=== PATIENT | female | born 1990 | race Caucasian/White ===

== ENCOUNTER 2018-03-01 10:16 | Emergency (ER) | payer BC, OTHER ==
[~2018-03-01] VITALS: Ht 162.6 cm; Wt 70.0 kg
[~2018-03-01 10:16] MED LIST: ALPR0.5T PO; ONDA4TAB35 PO; RANI150T35 PO; TRAM50TA2 PO
[2018-03-01 10:21] VITALS: BP 113/68; PULSE 65; RESP 16; Ht 162.6 cm; Wt 70.0 kg
[2018-03-01] MEDS ORDERED: OXYM15SP34 NASAL (10:28)
[2018-03-01] MEDS ORDERED: PSEU120T11 PO (10:28)
--- NOTE | 2018-03-01 10:32 | ERD ---
ER Documentation Chief Complaint Chief Complaint LEFT EAR PAIN X 2 DAYS HPI This is a 27-year-old female with a nonsignificant past medical history who presents ED with complaints of left ear pain times 2 days. Patient states that she recently was treated for a sinus infection and finished her full course of antibiotics 1 week ago, Juliette-Teofilo. Patient is concerned that she has an ear infection as last year she did have a sinus infection that led to an ear infection. Patient admits to runny nose. Denies fever, chills, headache, blurred vision, changes in vision, chest pain, shortness of breath, nausea, vomiting, diarrhea, constipation, abdominal pain. ROS All systems reviewed and are negative except as per history of present illness. Medications Home Meds Active Scripts Oxymetazoline Hcl* (Afrin [place]*) 0.05% - 15 Ml [place], 2 SPRAYS NASAL BID, #1 EA to each nostril Prov:IAN SR PA-C 03/01/18 Pseudoephedrine Hcl (Sudafe 12-Hour) 120 Mg Tablet.er, 120 MG PO BID PRN for CONGESTION for 5 Days, TAB.SA Prov:IAN SR PA-C 03/01/18 Ondansetron Hcl* (Zofran* ODT) 4 mg -ODT Tab.disper, 4 MG PO Q6 PRN for NAUSEA AND/OR VOMITING, #10 TAB Prov:CLAY LIMA 02/23/15 Ranitidine Hcl* (Zantac*) 150 Mg Tablet, 150 MG PO BID PRN for GASTROINTESTINAL UPSET, #20 TAB Prov:CLAY LIMA 02/23/15 Tramadol HCl (Tramadol HCl) 50 Mg Tablet, 50 MG PO Q4 PRN for PAIN, #20 TAB Prov:CLAY LIMA 02/23/15 Alprazolam* (Xanax*) 0.5 Mg Tab, 0.5 MG PO TID for ANXIETY, #12 TAB Prov:DIO HUTSON MD 02/05/15 Allergies Allergies: Coded Allergies: Penicillins (Verified Allergy, Severe, SHORTNESS OF BREATH, RASH, 1 04/08/14) PMhx/Soc History of Surgery: Yes (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 General: Well developed, well nourished, in no acute distress. Patient is awake and alert. Head: Normocephalic, atraumatic. Eyes: Normal conjunctiva, Pupils PERRLA, EOM intact grossly ENT: Pharynx is clear, Moist mucous membranes, external ears, nose and mouth normal, external auditory canal is clear with no tympanic membrane bulging, erythema, purulent air-fluid line seen, no tonsillar adenopathy, exudate or erythema, no tenderness to percussion of bilateral maxillary sinuses, mild rhinorrhea clear, percussion of teeth does not elicit pain Neck: Supple, no masses, lymphadenopathy or JVD Respiratory: Clear to auscultation bilaterally with no wheezing, rhonchi, rales, no distress Cardiovascular: RRR, no murmurs, rubs, or gallops Neurologic: Alert and oriented, moving all extremities, normal speech, no focal weakness, no cerebellar signs. Normal mentation Skin: warm and dry, No rash Psych: Normal mood Procedures/MDM ER COURSE: The patient was stable throughout ED course. I kept the patient and/or family informed of laboratory and diagnostic imaging results throughout the emergency room course. The patient was promptly evaluated and a treatment plan was devised based on H&P and other data. This plan was discussed with the patient who agreed and had no further questions or concerns prior to discharge. MEDICAL DECISION MAKING: This is a 27-year-old female presents ED with left ear pain times 2 days. There is no evidence of ear infection. Unsure of source of patient's otalgia but may be from recent sinus infection. No evidence of sinusitis, sepsis, serous otitis media, mastoiditis, epiglottitis, Rolando's, retropharyngeal abscess, peritonsillar abscess, among other ENT emergencies. Vitals are stable patient can be managed close outpatient follow-up. Advised patient follow-up with primary care in 48 hours. Return to ED with any worsening symptoms DISPOSITION PLAN: We discussed follow up with the patient's primary care doctor within 24 to 48 hours. Patient counseled regarding my diagnostic impression and care plan. Prior to discharge all questions answered. Pt agrees with treatment plan and understands strict return precautions. Precautionary instructions provided including instructions to return to the ER if not improving or for any worsening or changing symptoms or concerns. SPECIALIST FOLLOW UP RECOMMENDED: None Patient has been advised to follow up with primary care in 1-2 days. Disclaimer: Inadvertent spelling and grammatical errors are likely due to EHR/dictation software use and do not reflect on the overall quality of patient care. Also, please note that the electronic time recorded on this note does not necessarily reflect the actual time of the patient encounter. Departure Diagnosis: Primary Impression: Left ear pain Condition: Stable Patient Instructions: Earache W/O Infection (Adult) Referrals: [facility] YOU HAVE RECEIVED A MEDICAL SCREENING EXAM AND THE RESULTS INDICATE THAT YOU DO NOT HAVE A CONDITION THAT REQUIRES URGENT TREATMENT IN THE EMERGENCY DEPARTMENT. FURTHER EVALUATION AND TREATMENT OF YOUR CONDITION CAN WAIT UNTIL YOU ARE SEEN IN YOUR DOCTORS OFFICE WITHIN THE NEXT 1-2 DAYS. IT IS YOUR RESPONSIBILITY TO MAKE AN APPOINTMENT FOR FOLOW-UP CARE. IF YOU HAVE A PRIMARY DOCTOR --you should call your primary doctor and schedule an appointment IF YOU DO NOT HAVE A PRIMARY DOCTOR YOU CAN CALL OUR PHYSICIAN REFERRAL HOTLINE AT IF YOU CAN NOT AFFORD TO SEE A PHYSICIAN YOU CAN CHOSE FROM THE FOLLOWING [facility] [address] [facility]. [facility] [address] [facility] [facility] [address] [facility] [facility] [address] [facility]. [facility] [address] [facility]. [facility]. [address] Additional Instructions: Patient advised to return to the ED immediately for new or worsening symptoms. Patient advised to follow up with primary care provider in the next 24-48 hours. Patient verbalized understanding and agrees with treatment plan and course of action. If patient has no primary care they may follow up with one of the community clinics listed on the following page or one of the options listed below [facility] + [facility] [address] [place] [id number] or [facility] [address] [place] [address] or [facility] [address] [place] [address] IAN SR PA-C Mar 01, 2018 10:32
== END 2018-03-01 10:38 | disposition home or self-care (01) ==
LOC: FTE 10:16
DX: H92.02 Otalgia, left ear (principal)
CPT/HCPCS: 99282